=== PATIENT | female | born 1950 | race Caucasian/White ===

== ENCOUNTER → 2022-07-24 | Outpatient (CLI) | payer OTHER, SELFPAY ==
--- NOTE | 2022-07-24 | FLU_PTH ---
PATIENT: JUVENTINO LAW LOC: [facility]#:[id number] AGE/SX: 72/F ROOM: RE07/24/[address]: Dr. German Segura MD : 1950 BED: DIS: 07/24/2022 SPEC #: [id number] RECD: 07/24/22 16:28 STATUS: HEIDI REAleksandra #: [id number] AUREA: 07/24/22 00:[address]: German Segura DEPT: CYTOLOGY RECD BY: Anthony Nicholas ENTERED: 07/25/22 09:09 SP TYPE: Fluid OTHR DR: Dr. Navarro Johnson DO Tissues: A - Thyroid gland, NOS B - Thyroid gland, NOS Procedures: Special Stain Group II Surgery Specimen Level IV Cytospin Fluid HEADER OPERATION: Fine needle aspiration, left lower lobe thyroid nodule PRE-OP DIAGNOSIS: Left lower lobe thyroid nodule TISSUE SUBMITTED: A - Left lower lobe thyroid nodule fluid, B - Left lower lobe thyroid nodule x4 slides DIAGNOSIS CYTOLOGY A. Left lower lobe thyroid nodule fluid, fine needle aspiration (cytospin and cell block): A few clusters of atypical cells suspicious for papillary thyroid carcinoma. ([place] Category V). Adequate for evaluation. See comment. B. Left lower lobe thyroid nodule, fine needle aspiration (smears): Malignant cells present, derived from papillary thyroid carcinoma ([place] Category ). Adequate for evaluation. See comment. SJ:padilla 07/26/2022 COMMENT A. Immunohistochemistry ([id number]) supports the above diagnosis. Correlation with clinical, radiologic findings and appropriate follow up are necessary. Case has been reviewed in consultation with Dr. Russell who concurs with the above diagnosis. IDC:AM CYTOLOGY STUDY Slides are reviewed. CYTOLOGY GROSS A - Received is 35 ml of red cloudy fluid labeled with the patient's name and and designated per the requisition as left lower lobe thyroid nodule. Submitted for cytology preparation including cell block. B - Received are four smears labeled with the patient's name and designated per the requisition as left lower lobe thyroid nodule. Submitted for staining. / padilla 07/25/2022 TC:0 CPT: 97707 x2, 78033
--- NOTE | 2022-07-24 | IMM_PTH ---
PATIENT: JUVENTINO LAW LOC: [facility]#:[id number] AGE/SX: 72/F ROOM: RE07/24/[address]: Dr. German Segura MD : 1950 BED: DIS: 07/24/2022 SPEC #: [id number] RECD: 07/26/22 09:34 STATUS: HEIDI REQ #: [id number] AUREA: 07/24/22 00:[address]: German Segura DEPT: IMMUNOHISTOCHEMISTRY RECD BY: Shagufta Juarez ENTERED: 07/26/22 09:36 SP TYPE: IMMUNO OTHR DR: Dr. Navarro Johnson, DO Tissues: A - Thyroid gland, NOS Procedures: CK19 (initial) CD56 (add) GAL-3 (add) HBME (add) PHYSICIAN & INSTITUTION [place] [id number] SPECIMEN INFORMATION: Tissue Source: A ? Left lower lobe thyroid nodule Clinical Info: Left lower lobe thyroid Specimen Number: [id number] CPT code: 95990, 22426 x3 METHODOLOGY: Deparaffinized sections of prefer/formalin-fixed tissue or PAP/DQ stained slides are incubated with monoclonal/polyclonal antibodies/oligonucleotide probes. Localization is made via biotin free immunoperoxidase method. Appropriate controls are performed and reacted as expected. Results on target cell population are indicated in the following table: RESULTS: ANTIBODY / CLONE RESULT Block A HBME1 (HBME-1) positive, focal CK19 (A53-B/A2.26) positive GAL3 (9C4) negative CD56 (123C3.D5) negative These tests were developed and their performance characteristics determined by [facility]. They may not have been cleared or approved by the U.S. Food and Drug Administration. The FDA has determined that such clearance or approval is not necessary. The above immunohistochemical/dualISH markers are ordered and reviewed by the Pathologist. INTERPRETATION: A. Left lower lobe thyroid (cell block): A few clusters of atypical cells suspicious for papillary thyroid carcinoma. SJ:padilla 07/29/2022 Case has been reviewed in consultation with Dr. Russell who concurs with the above diagnosis. IDC:DAMION
[2022-07-24 11:48] LABS: Free T3 2.7 pg/mL (2.18-3.98); T4 Total, Thyroxin 11.2 ug/dL (4.8-13.9); Thyroid Stim Hormone (TSH) 0.94 uIU/mL (0.358-3.74)
== END | disposition home or self-care (01) ==
PROVIDERS: PCP Student in an Organized Health Care Education/Training Program; Referring Provider Surgery; Visit Provider Surgery
DX: E04.1 Nontoxic single thyroid nodule (principal)
CPT/HCPCS: 36415; 84436; 84443; 84481; 88108; 88305; 88313; 88341; 88342

== ENCOUNTER 2022-08-23 12:14 | Observation (INO) | payer MEDICARE, SELFPAY ==
--- NOTE | 2022-08-13 08:48 | EKG12_ITS ---
Test Reason : PREOP Blood Pressure : / mmHG Vent. Rate : 068 BPM Atrial Rate : 068 BPM P-R Int : 174 ms QRS Dur : 088 ms QT Int : 384 ms P-R-T Axes : 036 -17 090 degrees QTc Int : 408 ms Sinus rhythm with occasional Premature ventricular complexes Left ventricular hypertrophy with repolarization abnormality Nonspecific ST and T wave abnormality Poor R wave progression Abnormal ECG Confirmed by JOSELO LARIOS, GI ([id number]), commercial production editor MANISH COLEY ([id number]) on 08/14/2022 9:51:24 AM Referred By: MERT Confirmed By:GI JOSUE MD
[2022-08-13 10:42] LABS: Hemoglobin A1c 7.3 % (3.8-5.6)
[2022-08-13 10:46] LABS: Anion Gap 7 (5-15); BUN 18 mg/dL (7-18); BUN/Creat Ratio 19.7 RATIO (10-20); Calcium,Total 10.4 mg/dL (8.5-10.1); Chloride 102 mmol/L (98-107); Creatinine, Serum 0.92 mg/dL (0.55-1.02); EST Glomerular Filtration Rate 64 mL/min (>60); Est Glom Filt Rate - Afr Amer 78 mL/min (>60); Glucose 192 mg/dL (74-106); Potassium 4.2 mmol/L (3.5-5.1); Sodium Level 137 mmol/L (136-145)
[2022-08-13 10:49] LABS: T4 Free Direct 0.97 ng/dL (0.76-1.46); Thyroid Stim Hormone (TSH) 0.86 uIU/mL (0.358-3.74)
[2022-08-15 19:40] LABS: Anti-Thyroglobulin AB < 1.0 IU/mL (0.0-0.9); Thyroglobulin, Serum Qt. 54.5 ng/mL (1.5-38.5)
[2022-08-23] VITALS (14 sets, daily range): BP systolic 150–184; BP diastolic 70–97; PULSE 57–99; RESP 14–18; TEMP 36.2–37.4; O2SAT 92–100; BMI 29.0
--- NOTE | 2022-08-23 | THYROID_PTH ---
PATIENT: JUVENTINO LAW LOC: [facility] U#:[id number] AGE/SX: 72/F ROOM: [facility] [place] [place] RE08/23/[address]: Dr. German Segura MD : 1950 BED: 1 DIS: 08/24/2022 SPEC #: [id number] RECD: 08/23/22 09:36 STATUS: HEIDI REAleksandra #: [id number] AUREA: 08/23/22 00:[address]: German Segura DEPT: SURGICAL PATHOLOGY RECD BY: Shagufta Juarez ENTERED: 08/23/22 10:07 SP TYPE: THYROID OTHR DR: MD Dr. Navarro Johnston DO Dr. Toni King, MD Tissues: A - Parathyroid B - Parathyroid C - Thyroid gland, NOS Procedures: Gen Path Consultation (on slides) Frozen Section (charge) Surgery Specimen Level IV Surgery Specimen Level V HEADER OPERATION: Thyroidectomy PRE-OP DIAGNOSIS: Papillary thyroid carcinoma TISSUE SUBMITTED: A - Rule out left superior parathyroid tissue, FS, B - Left paratracheal mass, FS, C ? Total thyroid, stitch chapa right superior pole FROZEN SECTION DIAGNOSIS A. Rule out left superior parathyroid tissue, biopsy: Consistent with follicular neoplasm. Unremarkable thyroid tissue noted. : 08/23/2022 Case has been reviewed in consultation with Dr. Russell who concurs with the above diagnosis. IDC:DAMION B. Left paratracheal mass, biopsy: Consistent with follicular neoplasm. AM: 08/23/2022 Case has been reviewed in consultation with Dr. Kirkpatrick who concurs with the above diagnosis. IDC:SJ MICROSCOPIC DIAGNOSIS A. Left superior parathyroid tissue, biopsy: Consistent with parathyroid tissue. Adjacent unremarkable thyroid tissue. B. Left paratracheal mass, biopsy: Hyperplastic parathyroid tissue. C. Thyroid, total thyroidectomy: Thyroid papillary carcinoma, predominantly follicular variant involves green-inked margin. See comment and see cancer summary in the comment section. : 09/04/2022 COMMENT Specimens B & C (slides containing entire tumor, C1 and C15) are sent to [facility] for expert opinion, reviewed by Dr. Ennis and the above diagnosis is rendered. Immunohistochemistry performed here ([id number]) here and additional Immunohistochemical stains performed at [facility] supports the above diagnosis. The complete report is viewable in the patient's EMR. THYROID CANCER SUMMARY Procedure: Total Thyroidectomy Tumor Focality: Multifocal Tumor Site: Left lobe and isthmus lesion is suspicious for papillary carcinoma and measures ~ 0.1 cm in greatest dimension. Tumor Size: 3.0 x 2.0 x 1.5cm, larger lesion, left lobe Histologic Type: Papillary carcinoma, predominantly follicular variant, infiltrative Margins: Focally involved by invasive carcinoma. Site of involvement: Left lobe anterior surface Angioinvasion (vascular invasion): Not identified Lymphatic Invasion: Not identified Perineural Invasion: Not identified Extrathyroidal Extension: Not identified Regional Lymph Nodes: Number of lymph nodes Examined: 2 Number of Lymph nodes involved: 0 Node Levels Involved: Perithyroidal Distant metastasis: Not applicable Ancillary Studies: Please see report ([id number]) Additional Pathologic Findings: Multinodular goiter. Unremarkable parathyroid tissue (C15). Focal chronic inflammation. Clinical History: Please make reference to previous specimen ([id number]) left lower lobe thyroid nodule, FNA with diagnosis of ?malignant cells present derived from papillary thyroid carcinoma.? PATHOLOGIC STAGE: pT2 pN0 pMx The above summary is in compliance with [employer] [place] [employer] (CAP) Cancer Protocols Checklist and [place] [employer] Committee on Cancer (AJCC), Staging Manual, 8th Ed. This case is discussed with Dr. Segura on 09/04/2022. Case has been reviewed in consultation with Dr. Russell who concurs with the above diagnosis. IDC:AM MICROSCOPIC DESCRIPTION Slides are reviewed. GROSS DESCRIPTION A - Received fresh for frozen section diagnosis labeled with the patient's name is a specimen designated rule out left superior parathyroid tissue. The specimen consists of a piece of pink soft tissue measuring 0.5 x 0.5 x 0.2 cm and weighing 2 gm. The entire specimen is submitted for frozen section diagnosis in one cassette. / SJ:padilla 08/23/2022 B - Received fresh for frozen section diagnosis labeled with the patient's name is a specimen designated left paratracheal mass. The specimen consists of a piece of blackwell-pink soft tissue measuring 1.0 x 0.8 x 0.3 cm. The entire specimen is submitted in one cassette. / AM:padilla 08/23/2022 C - Received in fixative is one container labeled with the patient's name and designated total thyroid, stitch chapa right superior pole. The specimen consists of a total thyroidectomy specimen weighing 15.6 gm. Right thyroid lobe measures 4.0 x 2.0 x 1.5 cm, left thyroid lobe measures 4.5 x 2.0 x 1.5 cm and isthmus measures 1.0 x 0.5 x 0.3 cm. The specimen is inked as follows: posterior surface right lobe, left lobe and isthmus - black, anterior surface right lobe - blue, left lobe - green and isthmus - yellow. Sections of the right lobe and isthmus do not reveal any mass lesion. Sections of the left lobe reveal a blackwell-white solid mass involving the middle and lower pole of the lobe measuring 3.0 x 2.0 x 1.5 cm. Also present in the container is a detached piece of blackwell soft tissue measuring 1.0 x 0.5 x 0.3 cm. The entire specimen is submitted in 15 cassettes as follows: 1 - isthmus, 2-7 - right lobe (cassette 2 containing most superior portion and 7 containing most inferior portion), 8-14 - left lobe (cassette 8 containing most superior portion and 14 containing most inferior portion), 15 - detached piece of tissue. / SJ:padilla 08/26/2022 TC:0 CPT: 86757, 62762 x2, 39034 x2
--- NOTE | 2022-08-23 | IMM_PTH ---
PATIENT: JUVENTINO LAW LOC: [facility] U#:[id number] AGE/SX: 72/F ROOM: [facility]308 RE08/23/[address]: Dr. German Segura MD : 1950 BED: 1 DIS: 08/24/2022 SPEC #: [id number] RECD: 08/27/22 13:50 STATUS: HEIDI REQ #: [id number] AUREA: 08/23/22 00:[address]: German Segura DEPT: IMMUNOHISTOCHEMISTRY RECD BY: Shagufta Juarez ENTERED: 08/27/22 13:56 SP TYPE: IMMUNO OTHR DR: MD Dr. Navarro Johnston DO Dr. Toni King, MD Tissues: B - Parathyroid C - Thyroid gland, NOS Procedures: Synapto (add) Thyroglobulin (add) HBME (initial) CD56 (add) CHROMO (add) CK19 (add) CK8 (add) GAL-3 (add) HBME (add) TTF1 (add) Vimentin (add) Pankeratin (add) S-100 (add) PHYSICIAN & [place] [phone] SPECIMEN INFORMATION: Tissue Source: B ? Left paratracheal mass, C ? Total thyroid Clinical Info: Papillary thyroid carcinoma Specimen Number: [id number] B, C1, C12 & C15 CPT code: 00717 x2, 83337 x19 METHODOLOGY: Deparaffinized sections of prefer/formalin-fixed tissue or PAP/DQ stained slides are incubated with monoclonal/polyclonal antibodies/oligonucleotide probes. Localization is made via biotin free immunoperoxidase method. Appropriate controls are performed and reacted as expected. Results on target cell population are indicated in the following table: RESULTS: ANTIBODY / CLONE RESULT Block B HBME1 (HBME-1) negative CK19 (A53-B/A2.26) negative GAL3 (9C4) negative CD56 (123C3.D5) negative TTF-1 (8G7G3/1) negative AE1-3 (AE1/AE3/PCK26) negative CK8 (34tyjhX74) positive, focal weak Chromo (LK2H10) positive Synapto (polyclonal) negative S-100 (4C4.9) negative Vimentin (V9) negative Block C1 HBME1 (HBME-1) positive CK19 (A53-B/A2.26) positive GAL3 (9C4) positive CD56 (123C3.D5) positive Block C12 HBME1 (HBME-1) positive, focal CK19 (A53-B/A2.26) positive GAL3 (9C4) positive CD56 (123C3.D5) positive Block C15 TTF-1 (8G7G3/1) negative* Thyro (2H11+6E1) negative* *?Positive in thyroid tissue. These tests were developed and their performance characteristics determined by [facility]. They may not have been cleared or approved by the U.S. Food and Drug Administration. The FDA has determined that such clearance or approval is not necessary. The above immunohistochemical/dualISH markers are ordered and reviewed by the Pathologist. INTERPRETATION: B. Left paratracheal mass, biopsy: Consistent with hyperplastic thyroid tissue. C. Total thyroid, thyroidectomy: Papillary thyroid carcinoma, predominantly follicular variant (C12). A minute focus suspicious for papillary thyroid carcinoma (C1). Thyroid and parathyroid tissue (C15). Case has been reviewed in consultation with Dr. Russell who concurs with the above diagnosis. IDC:DAMION KING:padilla 09/04/2022
[2022-08-23] MEDS: Lactated Ringers 1,000 ML 15 ML IV (06:52)
[2022-08-23 07:21] LABS: Bedside Glucose 169 mg/dL (74-106)
[2022-08-23] MEDS: Cefazolin 2 GM in 0.9% Normal Saline 100 ML IV (07:22)
--- NOTE | 2022-08-23 07:22 | PCM.HP.BLA ---
History and Physical Date of Admission: 08/23/22 Date of Service:? 07/31/22 MR#: [id number] Acct: [id number] Name:JUVENTINO CRUZ Rep #: [id number] : 1950 ? ? Provider: Dr. German Segura MD Age/Sex:? 72/F ? ? Location: [facility] Status: Signed Intake Vital Signs ? 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 Hepatitis C antibody positive in blood Thyroid nodule Surgical History? H/O knee surgery H/O lumpectomy H/O shoulder surgery H/O: hysterectomy Family History? Mother Arthritis HypertensionBrother CancerFather Heart disease Social History? Smoking Status:? Never smoker alcohol intake:? never substance use type:? does not use what type of physical activity do you participate in:? other details: treadmill and back exercises HPI HPI HPI: Patient is a 72-year-old female who presents for follow-up of a 07/24/2022 consultation regarding a left lobe TI-RADS 4 nodule that underwent FNA under ultrasound guidance the same visit.? Cytopathology is returned consistent with papillary thyroid carcinoma and follow-up visit was arranged today to discuss surgical options.? She presents today with her son.? She denies any pressing questions out right, but wishes to hear her surgical options.? She confirms that her biopsy site healed uneventfully. Below is recapitulated from patient's consultation visit for ease of review: HPI: Patient is a 72-year-old female who presents for newly diagnosed left thyroid nodule.? They are referred for surgical consultation from Dr. Keenan of endocrinology.? This was discovered during routine physical exam with Dr. Johnson. They do not experience difficulty with swallowing.? They do not complain of a new cough.? They do not appreciate new voice changes.? They do not have a history of snoring/sleep apnea. Additionally, their weight has been stable and they do not have a history of weight gain/loss.? There is no history of recent fatigue.? They do not have a history of heat or cold intolerance.? ? Other symptoms include: Pertinent negatives for experience of palpitations, sweating, tremors, or abnormal swelling.? They do not have a family history of thyroid disorders or endocrinopathies.? There is a history of prior radiation exposure via treatment for breast cancer with lumpectomy and radiation in November 2020. Previous work-up has included thyroid ultrasound on 04/12/2022.? This showed a right thyroid lobe that measured 4.6 x 1.6 x 1.6 cm.? The left thyroid lobe measured 5.3 x 1.6 x 1.6 cm.? Isthmus was 0.3 cm thick.? A cystic nodule measuring 1.1 x 0.8 x 0.8 cm was noted in the left lobe and given a TI-RADS rating of 1.? Second nodule measuring 2.6 x 2.0 x 1.7 cm was given a TI-RADS rating of 4 for hypoechoic echogenicity and solid composition.? An FNA has not been performed.? Other tests include: TSH is 0.9 (but from 2020). ROS General General: Yes breast cancer; No weight change, appetite, fatigue, colon cancer or weakness HEENT HEENT: No difficulty swallowing, eye injury, eye surgery, swollen glands or hoarseness Endo Endocrine: Yes diabetes mellitus; No thyroid disease, thyroid cancer, Hair loss, heat intolerance or cold intolerance Skin Skin: No rash or changing moles Breast Breast: No left breast lump, right breast lump, nipple discharge, breast pain, abnormal mammogram, abnormal US or breast enlargement Musc Musculoskeletal: No back problems, arthritis, rheumatoid arthritis, gout or joint pain Cardio Cardiovascular: No murmur, pacemaker, heart disease, atrial fibrillation, high blood pressure, heart attack, heart stent, palpitations, shortness of breat with exertion or chest pain Psych Psychiatric: No depression, anxiety or hearing voices Resp Respiratory: No shortness of breath, No sleep apnea, No cough, No COPD, No asthma, No emphysema and No wheezing Gastro Gastrointestinal: No abdominal pain, No nausea or vomiting, No diarrhea, No constipation, No blood in stool, Yes acid reflux, No hemorrhoids, No ulcers, No gallbladder problem and No black,tarry stools Karlos Hematologic: Yes blood thinners, No blood disorders, No bleeding, No anemia and No blood clots Neuro Neurologic: No system reviewed and no additional complaints, except as documented, No as per HPI, No abnormal gait, No abnormal hearing, No abnormal movements, No abnormal speech, No behavioral changes, No burning sensations, No confusion, No convulsions, No disequilibrium, No dizziness, No localized weakness, No frequent falls, No headache(s), No lack of coordination, No loss of vision, No memory loss, No numbness, No other visual disturbances, No radicular pain, No restless legs, No sensory deficit, No syncope, No tingling, No tremor(s), No weakness and No other Exam Const General: cooperative and no acute distress Orientation: alert, awake and oriented x3 Neck Other: No signs of bruising from prior biopsy.? Thyroid is palpated and her left lower lobe nodule is easily palpated.? I do not identify any perithyroidal/cervical lymphadenopathy.? She does have a neck crease directly overlying the area of her cricoid cartilage. Assessment and Plan Assessment and Plan (1) Papillary thyroid carcinoma: ?Status:?Acute ?Comment: Is a 72-year-old female who presents for follow-up of a consultation visit where FNA was undertaken of the left thyroid nodule that returned with cytopathology consistent for papillary thyroid carcinoma.? At her index ultrasound, this thyroid nodule measured 2.6 cm in greatest dimension, but during our biopsy procedure together I was unable to identify a diameter greater than 2.3 cm.? I held a lengthy conversation with patient and her son today discussing the advantages and disadvantages of left lobectomy with isthmusectomy versus total thyroidectomy.? Using hand drawings and schematics to illustrate my points, we discussed the main risks of surgery to include recurrent laryngeal nerve dysfunction?temporary and permanent as well as hypoparathyroidism?temporary and permanent.? I also discussed the differences in postoperative surveillance with each approach.? I shared with patient that in low risk papillary thyroid cancer the [place] [employer] recommends consideration of thyroid lobectomy.? I believe Ms. Nam is an ideal candidate for this approach given that there were no nodules identified in her right thyroid lobe and that she presents with a euthyroid endocrine status.? Patient states she understands the important differences between the 2 approaches, but sees more merit in the lobectomy approach and wishes to proceed with that plan. ?Plan: ? Plan for outpatient left thyroid lobectomy with isthmusectomy using intraoperative nerve monitoring I have examined the patient and the H&P has been reviewed. There are no clinical changes since date of exam. Patient and her son request review of details about intraoperative nerve monitoring, but otherwise has no further questions. Therefore we will proceed to the operating room for procedure as described above. Procedure is planned for outpatient disposition.
[2022-08-23] MEDS: Bupivacaine 0.25% 30 ML Vial (08:02)
--- NOTE | 2022-08-23 12:03 | PCM.OPRPT ---
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 Total thyroidectomy with intraoperative nerve monitoring 2. Excision of left paratracheal mass Description of Surgical Findings:: - grossly intact left inferior, right superior parathyroid glands - visually and monitor-intact bilateral recurrent laryngeal nerves - suspicious left paratracheal mass (level 4) - grossly/palpably normal level 6 basin frozens - rule left superior parathyroid- parathyroid and thyroid tissue - left paratracheal mass- concerning for follicular neoplasm Permanent Total thyroid Surgeon: German Segura consulting services project manager: Naima Jones consulting services project manager: Jamil Gregory Type of Anesthesia: General/Supplemental Anesthesiologist: Beny Israel Specimen's removed: Frozen section - rule left superior parathyroid- parathyroid and thyroid tissue - left paratracheal mass- concerning for follicular neoplasm Permanent Total thyroid Drains: None Estimated Blood Loss (mL): 50 Description of Procedure: After appropriate identification in the preoperative holding area, the patient was brought to the operating room where she was positioned supine with arms tucked taking care to pad the ulnar nerve bilaterally. Induction of general endotracheal anesthetic was begun and a NIMS tube was placed under glidescope view to confirm coaptation with the vocal cords anteriorly. Tube was then secured and the patient was positioned with a shoulder roll so that her head was in extension but supported. The Nims electrodes were placed and connected to the monitor. We had appropriate resistance showing on the monitor and tapping at the level of the cricoid produce a graphical representation of the impulse on the monitor. Patient's neck was then prepped and draped in usual sterile fashion and a formal timeout was conducted with those present. The lowest skin fold to the sternal notch was selected for incision site (this resided approximately 2 fingerbreadths cephalad to the notch). Local anesthetic was instilled and a incision was extended for 2 cm on either side of midline. Electrocautery was used to deepen this incision through the level of the platysma. Subplatysmal flaps were raised with the use of electrocautery and blunt dissection. The strap muscles were then divided along the medial raphe bringing us down to the level of the thyroid. Capsular attachments to the thyroid were divided with the use of LigaSure or or electrocautery. Retractors were placed providing visualization of the superior pole of the left lobe of the thyroid. The vessels of the superior pole were sequentially ligated with the use of the LigaSure device. We then moved inferiorly and divided those polar vessels with LigaSure. The inferior parathyroid gland was grossly visualized and preserved with this division. With the poles freed the thyroid was mobilized medially by bluntly the remaining strap muscle fibers from the thyroid capsule and using LigaSure to divide the middle thyroid vein. While retracting the thyroid medially, there was significant difficulty in achieving a good balance of retraction and exposure since the patient's clearly visible/palpable left inferior pole mass was fairly adherent to the underlying trachea. To try to improve mobility, I performed meticulous blunt dissection parallel to the presumed course of the recurrent laryngeal nerve and tested all suspicious nerve structures with our nerve monitor. I was initially unable to obtain a positive signal with our monitor. I then tried to move superiorly to see if there would be better mobility from the superior pole and observed what appeared to represent our superior parathyroid gland. However as I attempted to free it from the thyroid capsule and maintain its vascularity I noted that it was very firm in composition. On closer inspection it did appear suggestive of metastatic thyroid tissue. Given this suspicion, I applied a titanium clip and cut distally to produce a frozen section specimen. This frozen section specimen was submitted to pathology rule out left superior parathyroid. Ultimately pathology would later call to say that identified normal thyroid and parathyroid tissue within this specimen. Given my persistent suspicion over this area, the relative immobility of the inferior pole of the thyroid, and my inability to obtain visual or Nims monitor evidence of our left recurrent laryngeal nerve, I summoned my partner, Dr. Gregory for assistance. He graciously obliged and on his arrival to the room we set about complete mobilization of the left superior pole of the thyroid down to the area of the ligament of Mckeon. In taking this topic?down approach we were able to completely free the thyroid from the anterior surface of the trachea. There appeared to be a probable nerve candidate just inferior to this area, but the structure did not give a positive nerve signal on our Nims monitor. We then made the decision to submit the entire, remaining left paratracheal mass for frozen section and bluntly dissected this free of the surrounding tissue as well as left a titanium clip across the vascular supply laterally before transecting it. This was submitted to pathology as left paratracheal mass. As we completed dissection of a pyramidal lobe off the superior/anterior surface of the trachea, pathology called our room to notify us that the suspected the left paratracheal mass represented a follicular neoplasm. They stated did not have features typical of papillary thyroid cancer, but suspected it was likely related to the index mass found on ultrasound-guided FNA preoperatively. With this suspicion, but no definitive cancer diagnosis, I made the decision to proceed with a total thyroidectomy. However, since patient had only been consented for left thyroid lobectomy, I broke scrub and discussed this intraoperative finding with patient's son who was present at the hospital for the operation. He expressed his understanding of this information and gave his verbal consent to proceed. On my return to the operating room I have mobilized the sternothyroid muscle off the anterior thyroid capsule and said about dissecting out the right superior pole vessels. These were sequentially secured and divided using our LigaSure device. The inferior pole vessels and middle thyroid vein were taken in like fashion. This lobe of the thyroid exhibited the normal elasticity/compliance of a normal thyroid lobe and there were no palpable suspicious nodules. It was then medialized with traction and a easily identified a grossly normal/well vascularized right superior parathyroid gland. I also visualized a clearly intact right recurrent laryngeal nerve taking a more obtuse angle than the left side had. This nerve had an excellent signal with her Nims monitor. Given that this was the noncancer side of the patient, I elected to?in the abundance of precaution?leave the minuscule thyroid remnant (approximately 5 mg) in the area of the ligament of Mckeon. To do so, I performed a blunt dissection through the thyroid tissue here?securing the remaining thyroid tissue with a 3-0 silk ligature. The nerve was tested prior to dividing the thyroid tissue and the signal remained excellent. The remaining thyroid tissue was then taken off the anterior surface of the trachea with cautery after assuring a comfortable distance from the nerve. The specimen was passed off the field as total thyroid after a marking suture was placed to designate the right superior pole. Reinspecting the surgical cavity, the right side appeared to be hemostatic and the right superior parathyroid gland appeared grossly normal/well vascularized. I did not identify a candidate for the right inferior parathyroid, but had stayed very close to the inferior pole thyroid capsule during our dissection. At this point I also inspected the pretracheal (level 6 lymph node basin) both visually and with palpation. I did not see or feel any abnormality. Lastly, I inspected the left surgical cavity and found some slight oozing coming from some diminutive vessels off the area of the thyroid cartilage. Being well away from the nerve, these were sealed with selective electrocautery. The cavity was then irrigated and there was still some persistent issues just adjacent to the nerve so I placed diffuse swatches of Surgicel over this area. I then inserted a Ray-Xavier sponge and applied manual pressure for a period of 2 minutes. This resulted in complete hemostasis. I also retested the area of the left recurrent laryngeal nerve and found a positive signal just lateral and deep to the initial suspected nerve structure. I determined that the initial suspect was actually a vessel overlying the true nerve. Satisfied with these results I proceeded with closure. The strap muscles were closed in a running fashion using 3-0 Vicryl. Then the platysmal layer was reapproximated with interrupted 3-0 Vicryl's transversely. Observing some denuded tissue along the superior margin of our incision, I elected to remove some of this skin to improve healing and took a thin margin back to healthy skin using her scalpel. I then closed the skin with a 4-0 Monocryl in a subcuticular fashion. The neck was then cleaned and dried and Steri-Strips and an OpSite bandage were applied as dressings. The patient was then awakened from anesthetic without event and was taken to PACU for ongoing recovery. Complications None Admit VTE Documentation VTE Mechan Device Prophylaxis: SCD's Procedures Endocrine CF Procedures [id number]: 20500 Removal of thyroid
[2022-08-23 12:50] LABS: Bedside Glucose 200 mg/dL (74-106)
[2022-08-23] MEDS: 0.9% Normal Saline 1,000 ML 125 ML IV ×2 (15:34→23:36)
[2022-08-23] MEDS: Insulin Lispro 100 UNIT/ML INSULN.PEN SC ×2 (16:06→21:15)
[2022-08-23] MEDS: Calcium Carb/Vitamin D 1 TABLET Tablet PO (16:06)
[2022-08-23 16:25] LABS: Bedside Glucose 273 mg/dL (74-106)
[2022-08-23] MEDS: hydrALAZINE 20 MG/ML Vial 10 MG IV (17:00)
[2022-08-23] MEDS: GLECAPREVIR/PIBRENTASVIR 1 EACH TABLET 3 EACH PO (17:04)
[2022-08-23] MEDS: Ibuprofen 400 MG Tablet PO (21:15)
[2022-08-23 21:26] LABS: Bedside Glucose 291 mg/dL (74-106)
[2022-08-24 00:30] VITALS: BP 147/70; PULSE 69; RESP 18; TEMP 37.1; O2SAT 93
[2022-08-24 03:13] VITALS: BP 144/74; PULSE 70; RESP 18; TEMP 37; O2SAT 94
[2022-08-24] MEDS: Ibuprofen 400 MG Tablet PO ×2 (03:15→09:50)
[2022-08-24 06:46] VITALS: BP 166/72; PULSE 60; RESP 18; TEMP 36.5; O2SAT 96
[2022-08-24 06:49] LABS: Anion Gap 6 (5-15); BUN 17 mg/dL (7-18); BUN/Creat Ratio 21.3 RATIO (10-20); Calcium,Total 9.2 mg/dL (8.5-10.1); Chloride 110 mmol/L (98-107); EST Glomerular Filtration Rate 75 mL/min (>60); Est Glom Filt Rate - Afr Amer 91 mL/min (>60); Estimated Creatinine Clearance 58.04 ml/min; Glucose 175 mg/dL (74-106); Magnesium 1.8 mg/dL (1.6-2.6); Phosphorus 3.8 mg/dL (2.5-4.9); Potassium 4.2 mmol/L (3.5-5.1); Sodium Level 141 mmol/L (136-145)
[2022-08-24] MEDS: Levothyroxine 125 MCG Tablet PO (06:49)
[2022-08-24] MEDS: 0.9% Normal Saline 1,000 ML 125 ML IV (06:53)
[2022-08-24] MEDS: Insulin Lispro 100 UNIT/ML INSULN.PEN SC ×2 (06:54→11:14)
[2022-08-24 07:21] LABS: Bedside Glucose 159 mg/dL (74-106)
[2022-08-24] MEDS: Calcium Carb/Vitamin D 1 TABLET Tablet PO ×2 (09:51→11:14)
--- NOTE | 2022-08-24 09:58 | DCINST_ITS ---
Discharge Instructions Diet Discharge Diet: Soft diet (Okay to advance to unrestricted once tolerating) Activity Discharge Activity: May Not Drive (While still difficult to turn head from side to side (impairing blindspot checking) OR if taking narcotic pain medications) May shower in (days): 2 Ice area for (Minutes): 20 Dressing / Incision Call your doctor if your incision/area has: Continuous Slow Oozing, Sudden Increased Bleeding, Increased Pain/ Swelling, Increased Redness and Swelling at the incision site Call your doctor if you observe: Fever of 101 or Higher, Numbness or Tingling (of fingertips or lips) and - (Difficulty swallowing) Remove Dressing in: 2 days (Remove outer dressing but leave steri strips in place until they fall off spontaneously) Cleanse incision/area with: Soap & Water (Avoid scrubbing/ submersing) Follow Up Care Please Follow Up With: German Segura MD When: In 1 week for postop check Test Results: Test results from this visit will be discussed in further detail at your follow- up appointment, if applicable. Discharge Plan Admission Admit Date/Time: 08/23/22 12:14 Primary Reason for Your Visit: Thyroidectomy Attending Provider: German Segura Primary Care Provider: Navarro Johnson Consulting Providers: John Keenan ; Reji Tomas Discharge Orders/Prescriptions Prescriptions: New calcium carbonate-vitamin D3 [Oyster Shell Calcium-Vit D3] 500 mg-5 mcg (200 unit) Tablet 1 tab PO TIDCM Qty: 30 2RF levothyroxine 125 mcg Tablet 125 mcg PO DAILY@0600 40 Days Qty: 40 0RF Continued lisinopril-hydrochlorothiazide 10-12.5 mg tablet 1 tab PO DAILY metformin 500 mg tablet 500 mg PO BID anastrozole 1 mg tablet 1 mg PO DAILY aspirin [Adult Low Dose Aspirin] 81 mg tablet,delayed release (DR/EC) 81 mg PO DAILY Prolia 60 mg/mL Syringe 60 mg SUBCUT .Q6 MONTHS Mavyret 100-40 mg tablet 3 tab PO DAILY Referrals / Follow Up: Navarro Johnson DO [Primary Care Provider] - Disposition Disposition (needs filled in before D/C Order can be placed): Home, Self Care
[2022-08-24 10:01] VITALS: BP 159/67; PULSE 77; RESP 16; TEMP 37.1; O2SAT 97
--- NOTE | 2022-08-24 10:04 | PCM.DC.SUM ---
Providers Date of Admission: 08/23/22 Primary Care Physician: Dr. Navarro Johnson DO Reason For Visit: LEFT THYROID LOBECTOMY WITH IONM Medications at Discharge Home Medications anastrozole 1 mg tablet 1 mg PO DAILY 06/26/22 aspirin 81 mg tablet,delayed release (Adult Low Dose Aspirin) 81 mg PO DAILY 06/26/22 lisinopril 10 mg-hydrochlorothiazide 12.5 mg tablet 1 tab PO DAILY 06/26/22 metformin 500 mg tablet 500 mg PO BID 06/26/22 denosumab 60 mg/mL subcutaneous syringe (Prolia) 60 mg subcut .Q6 MONTHS 08/12/22 glecaprevir 100 mg-pibrentasvir 40 mg tablet (Mavyret) 3 tab PO DAILY HEP C 08/12/22 calcium carbonate 500 mg-vitamin D3 5 mcg (200 unit) tablet (Oyster Shell Calcium-Vitamin D3) 1 tab PO TIDCM #30 tabs 08/24/22 levothyroxine 125 mcg tablet 125 mcg PO DAILY@0600 40 days #40 tabs 08/24/22 Hospital Course Operations - (Total thyroidectomy 08/23/2022) Summary of Care Provided Minutes Spent on Discharge: 5 Hospital Course: This is a 72-year-old female with biopsy-proven left lobe papillary thyroid cancer who was identified as having probable melody metastasis to the lateral compartment intraoperatively and therefore the planned procedure of lobectomy was converted to total thyroidectomy. Given the extent of the procedure, patient's disposition was changed to overnight observation. Patient was admitted to the floor overnight for monitoring of her neck as well as calcium/PTH monitoring postoperative day 1. Patient's recovery was uneventful and she had minimal postoperative discomfort. The morning of postoperative day 1 she reported significant improvement in her swallow discomfort and that she had taken a larger breakfast than she normally does at home. She also denied any evidence of paresthesias. PTH was pending, but calcium was within the normal range at 9.2. With this reassuring clinical picture, discharge to home was discussed?including instruction on taking thyroid supplement first thing in the morning absent any other location, food, or drink as well as calcium supplementation 3 times daily. Patient was also instructed to call surgery office first thing Friday morning to schedule a 1 week postoperative follow-up. At the conclusion of this discussion, Mrs. Nam expressed her thanks and comfort with our plans. Therefore discharge was executed. Physical Exam Const alert, oriented x3 and no apparent distress Neck Neck Narrative: Operative bandage in place that is clean and dry. Remainder of the soft tissues are soft and there is no evidence of underlying hematoma. Patient has minimal tenderness with palpation of neck and demonstrates excellent range of motion. Resp normal respiratory effort Weight / BMI Weight Weight: 174 lb 2.643 oz Body Mass Index (BMI) 29.0 ABG / Lab / Microbiology Data Result Diagrams: 08/24/22 05:47 Laboratory: Laboratory Results - last 24 hr 08/23/22 12:32: POC Glucose 200 H 08/23/22 16:03: POC Glucose 273 H 08/23/22 21:06: POC Glucose 291 H 08/24/22 05:47: Sodium 141, Potassium 4.2, Chloride 110 H, Carbon Dioxide 25.0, Anion Gap 6, BUN 17, Creatinine 0.80, Estim Creat Clear Calc 58.04, Est GFR (MDRD) Af Amer 91, Est GFR (MDRD) Non-Af 75, BUN/Creatinine Ratio 21.3 H, Glucose 175 H, Calcium 9.2, Phosphorus 3.8, Magnesium 1.8 08/24/22 06:52: POC Glucose 159 H D/C Instructions Discharge Diet: Soft diet (Okay to advance to unrestricted once tolerating) May shower in (days): 2 Ice area for (Minutes): 20 Call your doctor if your incision/area has: Continuous Slow Oozing, Sudden Increased Bleeding, Increased Pain/ Swelling, Increased Redness and Swelling at the incision site Call your doctor if you observe: Fever of 101 or Higher, Numbness or Tingling (of fingertips or lips) and - (Difficulty swallowing) Cleanse incision/area with: Soap & Water (Avoid scrubbing/ submersing) Please Follow Up With: German Segura MD When: In 1 week for postop check Meaningful Use Info Meaningful Use Diagnoses (Choose all that apply): None applicable Discharge Plan Admission Admit Date/Time: 08/23/22 12:14 Primary Reason for Your Visit: Thyroidectomy Attending Provider: German Segura Primary Care Provider: Navarro Johnson Consulting Providers: John Keenan ; Reji Tomas Discharge Orders/Prescriptions Prescriptions: New calcium carbonate-vitamin D3 [Oyster Shell Calcium-Vit D3] 500 mg-5 mcg (200 unit) Tablet 1 tab PO TIDCM Qty: 30 2RF levothyroxine 125 mcg Tablet 125 mcg PO DAILY@0600 40 Days Qty: 40 0RF Continued lisinopril-hydrochlorothiazide 10-12.5 mg tablet 1 tab PO DAILY metformin 500 mg tablet 500 mg PO BID anastrozole 1 mg tablet 1 mg PO DAILY aspirin [Adult Low Dose Aspirin] 81 mg tablet,delayed release (DR/EC) 81 mg PO DAILY Prolia 60 mg/mL Syringe 60 mg SUBCUT .Q6 MONTHS Mavyret 100-40 mg tablet 3 tab PO DAILY Referrals / Follow Up: Navarro Johnson DO [Primary Care Provider] - Disposition Disposition (needs filled in before D/C Order can be placed): Home, Self Care
[2022-08-24 11:40] LABS: Bedside Glucose 231 mg/dL (74-106)
[2022-08-24 12:24] VITALS: BP 158/62; PULSE 60; RESP 16; TEMP 36.4; O2SAT 94
[2022-08-24 12:33] LABS: PTHIN < 6.3 pg/mL (18.4-80.1)
== END 2022-08-24 13:31 | disposition home or self-care (01) ==
LOC: SDC 15:08 → MS3 15:08
PROVIDERS: Anesthesiology; Internal Medicine Endocrinology, Diabetes & Metabolism; Admitting Provider Surgery; PCP Student in an Organized Health Care Education/Training Program; Referring Provider Surgery; Visit Provider Surgery
PROC: (CPT 60252; principal; 2022-08-23 07:15)
DX: C73 Malignant neoplasm of thyroid gland (principal); E21.4 Other specified disorders of parathyroid gland; E11.9 Type 2 diabetes mellitus without complications; E04.1 Nontoxic single thyroid nodule; Z79.899 Other long term (current) drug therapy; Z79.84 Long term (current) use of oral hypoglycemic drugs; Z79.82 Long term (current) use of aspirin; M19.90 Unspecified osteoarthritis, unspecified site; K21.9 Gastro-esophageal reflux disease without esophagitis; R76.8 Other specified abnormal immunological findings in serum
CPT/HCPCS: 60252; 00320; 36415; 80048; 82962; 83036; 83735; 83970; 84100; 84432; 84439; 84443; 86800; 88305; 88307; 88325; 88331; 88341; 88342; 93005; 96361; 96374; 99221; A4648; J7030; J7120; G0378; J2405

== ENCOUNTER → 2022-08-30 | Outpatient (CLI) | payer MEDICARE, SELFPAY ==
[2022-08-30 11:37] LABS: Calcium,Total 9.9 mg/dL (8.5-10.1)
[2022-08-30 11:43] LABS: PTHIN 12.7 pg/mL (18.4-80.1)
== END | disposition home or self-care (01) ==
LOC: PAVLAB 10:48
PROVIDERS: PCP Student in an Organized Health Care Education/Training Program; Referring Provider Surgery; Visit Provider Surgery
DX: E21.3 Hyperparathyroidism, unspecified (principal); E89.0 Postprocedural hypothyroidism
CPT/HCPCS: 36415; 82310; 83970

== ENCOUNTER → 2022-09-02 | Outpatient (CLI) | payer MEDICARE, SELFPAY ==
[2022-09-02 11:08] LABS: Absolute Lymphocyte Count 1.18 X10^3/uL (0.83-4.51); Absolute Neutrophil Count 5.1 X10^3/uL (2.0-7.7); Basophil# 0.04 X10^3/uL; Basophil% 0.6 % (0-1); Eosinophil# 0.06 X10^3/uL; Eosinophils% 0.9 % (0-5); Hematocrit 41.8 % (37-47); Hemoglobin 13.7 g/dL (12.0-15.0); Lymphocyte # 1.18 X10^3/ul (0.83-4.51); Lymphocyte % 16.9 % (19-41); Mean Corp Hgb Conc 32.8 g/dL (32-36); Mean Corpuscular Hgb 28.7 pg (27.0-32.0); Mean Corpuscular Volume 87.6 fL (81-99); Mean Platelet Vol. 8.9 fl (6.2-12.0); Monocyte# 0.51 X10^3/uL; Monocyte% 7.3 % (0-10); NRBC Flagged by Analyzer 0 % (0-5); Neutrophil # 5.13 X10^3/uL (2.7-7.7); Neutrophil % 73.2 % (47-70); Platelet Count 266 K/mm3 (150-450); RBC Distribution Width CV 12.8 % (11.6-14.6); RBC Distribution Width SD 40.6 fl (35.1-43.9); Red Blood Count 4.77 M/mm3 (4.2-5.4)
[2022-09-02 11:16] LABS: Prothrombin Time (Protime)PT. 12.5 SECONDS (11.7-14.9)
== END | disposition home or self-care (01) ==
LOC: PAVLAB 10:43
PROVIDERS: PCP Student in an Organized Health Care Education/Training Program; Referring Provider Surgery; Visit Provider Surgery
DX: E89.0 Postprocedural hypothyroidism (principal)
CPT/HCPCS: 36415; 85025; 85610

== ENCOUNTER → 2022-09-17 | Outpatient (CLI) | payer MEDICARE, SELFPAY ==
[2022-09-17 09:31] LABS: PTHIN 21.8 pg/mL (18.4-80.1)
[2022-09-17 09:39] LABS: Calcium,Total 9.7 mg/dL (8.5-10.1)
== END | disposition home or self-care (01) ==
LOC: PAVLAB 08:45
PROVIDERS: PCP Student in an Organized Health Care Education/Training Program; Referring Provider Surgery; Visit Provider Surgery
DX: E21.3 Hyperparathyroidism, unspecified (principal); R23.3 Spontaneous ecchymoses; R58 Hemorrhage, not elsewhere classified
CPT/HCPCS: 36415; 82310; 83970

== ENCOUNTER → 2022-09-26 | Outpatient (CLI) | payer MEDICARE, SELFPAY ==
[2022-09-26 16:51] LABS: T4 Free Direct 1.47 ng/dL (0.76-1.46); Thyroid Stim Hormone (TSH) 0.25 uIU/mL (0.358-3.74)
[2022-10-01 09:08] LABS: Anti-Thyroglobulin AB < 1.0 IU/mL (0.0-0.9); Thyroglobulin, Serum Qt. 0.1 ng/mL (1.5-38.5)
== END | disposition home or self-care (01) ==
LOC: LAB 14:51
PROVIDERS: PCP Student in an Organized Health Care Education/Training Program; Referring Provider Internal Medicine Endocrinology, Diabetes & Metabolism; Visit Provider Internal Medicine Endocrinology, Diabetes & Metabolism
DX: C73 Malignant neoplasm of thyroid gland (principal)
CPT/HCPCS: 36415; 84432; 84439; 84443; 86800

== ENCOUNTER → 2022-10-03 | Outpatient (CLI) | payer MEDICARE, SELFPAY ==
[2022-10-03 11:58] LABS: PTHIN 47.6 pg/mL (18.4-80.1)
== END | disposition home or self-care (01) ==
LOC: PAVLAB 11:08
PROVIDERS: PCP Student in an Organized Health Care Education/Training Program; Referring Provider Surgery; Visit Provider Surgery
DX: E89.2 Postprocedural hypoparathyroidism (principal); E89.0 Postprocedural hypothyroidism
CPT/HCPCS: 36415; 82310; 83970

== ENCOUNTER → 2023-01-09 | Outpatient (CLI) | payer MEDICARE, SELFPAY ==
[2023-01-09 12:42] LABS: T4 Free Direct 1.33 ng/dL (0.76-1.46); Thyroid Stim Hormone (TSH) 0.12 uIU/mL (0.358-3.74)
[2023-01-13 17:07] LABS: Anti-Thyroglobulin AB < 1.0 IU/mL (0.0-0.9); Thyroglobulin, Serum Qt. < 0.1 ng/mL (1.5-38.5)
== END | disposition home or self-care (01) ==
LOC: BIMLAB 11:26
PROVIDERS: PCP Student in an Organized Health Care Education/Training Program; Referring Provider Internal Medicine Endocrinology, Diabetes & Metabolism; Visit Provider Internal Medicine Endocrinology, Diabetes & Metabolism
DX: E89.0 Postprocedural hypothyroidism (principal); C73 Malignant neoplasm of thyroid gland
CPT/HCPCS: 36415; 84432; 84439; 84443; 86800

== ENCOUNTER → 2023-04-05 | Outpatient (CLI) | payer MEDICARE, SELFPAY ==
--- NOTE | 2023-04-05 10:14 | US_ITS ---
EXAM: US SOFT TISSUES HEAD AND NECK, THYROID CLINICAL INDICATION: hx of thyroidectomy TECHNIQUE: Greyscale and color doppler imaging was performed of the thyroid gland. COMPARISON: Thyroid ultrasound examinations, 04/12/2022 and 07/24/2022. FINDINGS: LEFT THYROID LOBE: Status post left-sided thyroidectomy. RIGHT THYROID LOBE: There is a small amount of echogenic tissue consistent with residual right-sided thyroid tissue in the right posterior thyroidectomy bed measuring 0.9 x 0.6 x 0.7 cm. No discrete nodule within the right thyroid lobe is identified. ISTHMUS: Status post thyroidectomy. US/Thyroid IMPRESSION: There is a small amount of echogenic tissue consistent with residual right-sided thyroid tissue in the right posterior thyroidectomy bed measuring 0.9 x 0.6 x 0.7 cm. No discrete nodule within the right thyroid lobe is identified. Electronically Signed: Tyler Zuñiga DO at 17:25 EDT ,
== END | disposition home or self-care (01) ==
LOC: US 10:14
PROVIDERS: PCP Student in an Organized Health Care Education/Training Program; Referring Provider Surgery; Visit Provider Surgery
DX: E89.0 Postprocedural hypothyroidism (principal)
CPT/HCPCS: 76536

== ENCOUNTER → 2023-10-07 | Outpatient (CLI) | payer MEDICARE, SELFPAY ==
[2023-10-07 17:13] LABS: T4 Free Direct 1.37 ng/dL (0.76-1.46); Thyroid Stim Hormone (TSH) 0.18 uIU/mL (0.358-3.74)
[2023-10-09 18:07] LABS: Anti-Thyroglobulin AB < 1.0 IU/mL (0.0-0.9); Thyroglobulin, Serum Qt. < 0.1 ng/mL (1.5-38.5)
== END | disposition home or self-care (01) ==
LOC: BIMLAB 14:48
PROVIDERS: PCP Student in an Organized Health Care Education/Training Program; Visit Provider Internal Medicine Endocrinology, Diabetes & Metabolism
DX: E89.0 Postprocedural hypothyroidism (principal)
CPT/HCPCS: 36415; 84432; 84439; 84443; 86800

== ENCOUNTER → 2024-04-05 | Outpatient (CLI) | payer MEDICARE, SELFPAY ==
--- NOTE | 2024-04-05 15:28 | US_ITS ---
STUDY: THYROID ULTRASOUND REASON FOR EXAM: Female, 73 years old. Follow-up. TECHNIQUE: Ultrasound evaluation of the thyroid was performed with real-time and static gilbert-scale imaging. COMPARISON: Comparison is made with prior study April 05, 2023. FINDINGS: RIGHT LOBE: The right lobe of the thyroid gland measures 7 mm x 9 mm x 7 mm. There is a homogeneous echotexture. There are no demonstrated solid, cystic or complex lesions. LEFT LOBE: Status post left thyroidectomy. ISTHMUS: The isthmus not present. The regional lymph nodes are normal. US/Thyroid IMPRESSION: Status post left thyroidectomy. Small right lobe remnant. Stable examination. Electronically Signed: Melvin Aguilar MD at 15:12 EST ,
== END | disposition home or self-care (01) ==
LOC: US 15:12
PROVIDERS: PCP Student in an Organized Health Care Education/Training Program; Referring Provider Surgery; Visit Provider Surgery
DX: E04.1 Nontoxic single thyroid nodule (principal)
CPT/HCPCS: 76536

== ENCOUNTER → 2024-12-06 | Outpatient (CLI) | payer MEDICARE, SELFPAY ==
[2024-12-07 16:08] LABS: Thyroglobulin, Serum Qt. < 0.1 ng/mL (1.5-38.5)
== END | disposition home or self-care (01) ==
LOC: BIMLAB 10:35
PROVIDERS: PCP Student in an Organized Health Care Education/Training Program; Referring Provider Internal Medicine Endocrinology, Diabetes & Metabolism; Visit Provider Internal Medicine Endocrinology, Diabetes & Metabolism
DX: C73 Malignant neoplasm of thyroid gland (principal); E89.0 Postprocedural hypothyroidism
CPT/HCPCS: 36415; 84432; 84439; 84443; 86800